=== PATIENT | male | born 1980 | race African-American/Black ===

== ENCOUNTER 2022-11-29 06:29 | Emergency (ER) | payer SELFPAY ==
[~2022-11-29] VITALS: Ht 177.8 cm; Wt 75.0 kg
[2022-11-29 06:32] VITALS: O2SAT 100
[2022-11-29] MEDS ORDERED: LEVETIRACETAM 1000MG PREMIX 100 ML IV ONE (07:00)
[2022-11-29] MEDS ORDERED: SODIUM CHLORIDE 0.9% 1,000 ML IV ONE (07:00)
[2022-11-29 07:50] LABS: BASOPHILS % 0.6 % (0.0-2.0); EOSINOPHILS % 0.3 % (0.0-5.0); HEMATOCRIT. 40.9 % (42.0-52.0); HEMOGLOBIN. 14.3 g/dL (14.0-18.0); LYMPHOCYTES % 12.1 % (20.0-50.0); MEAN CORPUSCULAR HEMOGLOBIN 29.8 pg (28.0-32.0); MEAN CORPUSCULAR VOLUME 85.1 fL (80.0-94.0); MEAN PLATELET VOLUME 7.3 fl (7.4-10.4); MONOCYTES % 10.8 % (2.0-8.0); NEUTROPHILS % 76.2 % (40.0-76.0); PLATELET 287 x1000/uL (130-400); RED BLOOD CELL COUNT 4.81 mill/uL (4.7-6.1); RED CELL DISTRIBUTION WIDTH 15.6 % (11.6-14.6)
[2022-11-29 08:22] LABS: CHLORIDE 108 mEq/L (98-107)
[2022-11-29 08:29] LABS: ETHANOL BLOOD < 10 mg/dL (-10)
[2022-11-29] MEDS ORDERED: LEVE1000 MT (13:32)
[2022-11-29 14:12] VITALS: BP 123/79; PULSE 56; RESP 14; TEMP 98
== END 2022-11-29 14:13 | disposition home or self-care (01) ==
LOC: ER 06:29
DX: R56.9 Unspecified convulsions (principal)
CPT/HCPCS: 80053; 80320; 85025; 36415; 70450; 93005; 96365; 96366; 99285; J1953; J7030; G0480